=== PATIENT | male | born 1940 | race Caucasian/White ===

== ENCOUNTER 2023-09-27 11:58 | Emergency (ER) | payer MEDICARE, OTHER, SELFPAY ==
[2023-09-27 12:01] VITALS: BP 165/73
[2023-09-27 12:26] LABS: % Basophils 0.7 % (0-2); % Eosinophils 2.1 % (0-6); % Immature Granulocytes 0.3 % (0-0.5); % Lymphocytes 17.9 % (20.5-51.1); % Monocytes 7.3 % (1.7-9.3); % Neutrophils 71.7 % (42.2-75.2); Absolute Basophils 0.1 10^3/uL (0-0.2); Absolute Eosinophils 0.2 10^3/uL (0-0.7); Absolute Lymphocytes 1.3 10^3/uL (1.2-3.4); Absolute Monocytes 0.5 10^3/uL (0.1-0.6); Absolute Neutrophils 5.2 10^3/uL (1.4-6.5); Hematocrit 38.9 % (39.0-52.0); Hemoglobin 13.4 g/dL (13.0-18.0); Mean Corp Hgb Conc. 34.4 g/dL (33.0-37.0); Mean Corpuscular Hgb 31.5 pg (27.0-31.0); Mean Corpuscular Volume 91.3 fL (80.0-94.0); Mean Platelet Volume 10.5 fL (7.4-10.4); Nucleated Red Blood Cells % 0 % (-); Platelet Count 246 10^3/uL (130-400); Red Blood Cell Count 4.26 10^6/uL (4.70-6.10); Red Cell Dist. Width 12.6 % (11.5-14.5); White Blood Cell Count 7.3 10^3/uL (4.8-10.8)
[2023-09-27 12:40] LABS: ALT (SGPT) 21 U/L (0-50); AST (SGOT) 20 U/L (17-59); Albumin 4.2 g/dl (3.5-5.0); Alkaline Phosphatase 50 U/L (38-126); Blood Urea Nitrogen 25 mg/dl (9-20); Calcium 9.4 mg/dl (8.4-10.2); Carbon Dioxide 24 mmol/L (22-30); Chloride 103 mmol/L (98-107); Glucose 185 mg/dl (70-99); Potassium 4.7 mmol/L (3.5-5.1); Sodium 137 mmol/L (135-145); Total Bilirubin 0.6 mg/dl (0.2-1.3); Total Protein 6.8 g/dl (6.3-8.2); eGFR 53.84
[2023-09-27 13:29] VITALS: BMI 29.2
[2023-09-27 14:32] LABS: Urine Albumin Negative (Neg - Trace); Urine Bilirubin Negative (Negative); Urine Character Clear (Clear); Urine Color Yellow; Urine Glucose Negative (Negative); Urine Ketone Negative (Negative); Urine Leukocyte Negative (Negative); Urine Nitrite Negative (Negative); Urine Occult Blood Negative (Negative); Urine Urobilinogen Negative (Neg - 1+)
[2023-09-27] MEDS: NSS 500 IV (15:07)
[2023-09-27 15:31] VITALS: BP 144/74
--- NOTE | 2023-09-27 15:38 | ED.GENMED ---
History of Present Illness
General
Chief Complaint: Dizziness
Source: patient
Exam Limitations: none
Time Seen by Provider: 09/27/23 13:43
Travel History
Have you had any contact with someone who has COVID-19?: No
Do you have any symptoms of coronavirus? Fever > 100 degrees, chills, cough, shortness of breath, sore throat, loss of taste or smell, muscle aches, or headache?: No
History of Present Illness
History of Present Illness:
83-year-old male history of ezs-wqwaqnb-vvocyiqoa diabetes presents complaining of intermittent episodes of dizziness over the past month. He describes a spinning sensation. At times he feels like he zones out. No unilateral numbness or weakness.
No headache chest pain shortness of breath nausea vomiting. No vision change. No fever. He has checked his blood sugars which have been good. No other complaints at this
Past History
Past History
ED Past Medical History: COPD, GERD, HTN, Hypercholesterolemia, NIDDM and Other (Glaucoma, prostatic hypertrophy)
Social History
Tobacco: Non-smoker
Phy Exam
Physical Exam
Physical Exam:
General: Well-appearing male no acute respiratory distress
HEENT: Normocephalic atraumatic pupils equal round reactive to light extract motion intact no nystagmus TMs normal
Heart: Regular rate and rhythm no murmurs
Lungs: Clear to auscultation bilaterally no wheezing
Abdomen: Soft nontender nondistended
Neurologic exam: Alert and oriented no facial asymmetry finger-nose [id number] intact normal gait. No drift on exam no aphasia or dysarthria
Course
Orders/Labs/Results
Orders:
Orders
09/27/23 12:04
Electrocardiogram (*1) Urgent
Reason for Study: Vertigo / Dizzy
EKG- Treatment ONCE
09/27/23 12:11
Complete Blood Count/With Diff Urgent
Comprehensive Metabolic Panel Urgent
09/27/23 14:02
CT Head W/o Iv Contrast Urgent
Comment:
Reason For Exam: dizzy
09/27/23 14:13
0.9% Sodium Chloride 500 ml [Nss] 500 ml IV BOLUS
09/27/23 14:16
Urinalysis Reflex To Culture Urgent
Date Specimen was Collected: 09/27/23
Time Specimen was Collected: 14:10
Abnormal Lab Results
09/27/23
12:11
RBC 4.26 L 10^6/uL
(4.70-6.10)
Hct 38.9 L %
(39.0-52.0)
MCH 31.5 H pg
(27.0-31.0)
MPV 10.5 H fL
(7.4-10.4)
Lymphocytes % 17.9 L %
(20.5-51.1)
BUN 25 H mg/dl
(9-20)
Glucose 185 H mg/dl
(70-99)
09/27/23 12:11
09/27/23 12:11
Vital Signs
Initial and Last Documented VS:
Initial Vital Signs
Temp Pulse Resp BP Pulse Ox
97.6 F 73 18 165/73 99
09/27/23 12:01 09/27/23 12:01 09/27/23 12:01 09/27/23 12:01 09/27/23 12:01
Last Documented Vital Signs
Temp Pulse Resp BP Pulse Ox
97.6 F 56 16 144/74 97
09/27/23 12:01 09/27/23 15:31 09/27/23 15:31 09/27/23 15:31 09/27/23 15:31
MDM/Problems Addressed
Differential Diagnosis Includes:
Dizziness. Question vertigo unlikely be CVA given duration of symptoms. Question electrolyte abnormality or arrhythmia. Will check labs CT
*Critical Care Note
Total Time (30-74mins, 75-104mins- exclusive of procedures): Not Applicable
Update Note
Update Note:
CT shows chronic lacunar infarct. Negative patient asymptomatic. He has ambulated to the bathroom and back. He was hydrated. Labs okay. Discussed lacunar infarct with neurology. No emergent indication for any intervention at this point.
Stable for follow-up with family doctor and/or makeup instructor
ED Attending Note
-
Portions of this chart may have been created with voice recognition software.� Occasional wrong word or��sound alike� substitutions may have occurred due to the inherent limitations of voice recognition software.
Discharge Plan
Departure
Patient Disposition: Home (Routine Discharge)
Date of Disposition: 09/27/23
Time of Disposition: 15:38
Patient with high blood pressure during this ER visit?: No
Discharge Problem:
Dizziness
Instructions: Dizziness
Prescriptions:
No Action
pravastatin 40 MG tablet
40 mg PO QPM
aspirin 81 MG tablet,delayed release (DR/EC)
81 mg PO DAILY
tamsulosin 0.4 MG capsule
0.4 mg PO HS
metformin 1,000 MG tablet
1,000 mg PO BID
omeprazole 20 MG capsule,delayed release(DR/EC)
20 mg PO PRN PRN (Reason: heart burn)
Centrum Silver 1 EACH tablet
1 ea PO DAILY
diltiazem HCl 120 mg Capsule,Extended Release 24 Hr
120 mg PO HS
Referrals:
Shen Cleveland DO [Family Provider] -
Activity Restrictions/Additional Instructions:
Please follow-up with your family doctor and makeup instructor. Return for worsening symptoms otherwise.
Interventions
Interventions:
*Risk Screen - Suicide Last Done: 09/27/23 12:01
*General Assessment Last Done: 09/27/23 12:01
*Neglect/Abuse Screening Last Done: 09/27/23 12:01
*ED COVID-19 Vaccine History Last Done: 09/27/23 12:01
== END 2023-09-27 15:54 | disposition home or self-care (01) ==
LOC: EMR 11:58
PROVIDERS: Emergency Medicine; Physician Assistant; EMERGENCY PHYSICIAN Emergency Medicine; FAMILY PHYSICIAN Family Medicine
DX: R42 Dizziness and giddiness (principal); I63.81 Other cerebral infarction due to occlusion or stenosis of small artery
CPT/HCPCS: 99285; 96360; 70450; 80053; 81003; 85025; 93005

== ENCOUNTER → 2023-11-29 08:28 | Outpatient (REF) | payer MEDICARE, OTHER, SELFPAY ==
[2023-11-29 12:43] LABS: Erythrocyte Sed Rate 11 mm/hour (0-20)
[2023-11-29 12:45] LABS: C-Reactive Protein < 5.00 mg/L (0.0-10.00)
[2023-11-29 13:15] LABS: TSH Reflex To Free T4 3.01 uIU/ml (0.47-4.68)
[2023-11-29 13:51] LABS: Folate 18.1 ng/ml (2.76-20); Vitamin B12 276 pg/ml (239-931)
== END ==
LOC: HWLAB 08:28
PROVIDERS: ATTENDING PHYSICIAN Psychiatry & Neurology Neurology; FAMILY PHYSICIAN Family Medicine
DX: R42 Dizziness and giddiness (principal); R94.6 Abnormal results of thyroid function studies; D52.9 Folate deficiency anemia, unspecified; D51.0 Vitamin B12 deficiency anemia due to intrinsic factor deficiency
CPT/HCPCS: 36415; 82607; 82746; 84155; 84165; 84443; 85652; 86140

== ENCOUNTER 2024-05-22 16:19 | Observation (INO) | payer MEDICARE, OTHER, SELFPAY ==
[2024-05-22 11:40] VITALS: BP 154/66
[2024-05-22 12:12] VITALS: BMI 27.7
[2024-05-22 12:12] LABS: % Basophils 0.5 % (0-2); % Eosinophils 2.1 % (0-6); % Immature Granulocytes 0.5 % (0-0.5); % Monocytes 6.7 % (1.7-9.3); % Neutrophils 66.2 % (42.2-75.2); Absolute Eosinophils 0.1 10^3/uL (0-0.7); Absolute Lymphocytes 1.5 10^3/uL (1.2-3.4); Absolute Monocytes 0.4 10^3/uL (0.1-0.6); Absolute Neutrophils 4.1 10^3/uL (1.4-6.5); Mean Corp Hgb Conc. 35.1 g/dL (33.0-37.0); Mean Corpuscular Hgb 31.3 pg (27.0-31.0); Mean Corpuscular Volume 88.9 fL (80.0-94.0); Mean Platelet Volume 10.3 fL (7.4-10.4); Nucleated Red Blood Cells % 0 % (-); Platelet Count 257 10^3/uL (130-400); Red Blood Cell Count 4.16 10^6/uL (4.70-6.10); Red Cell Dist. Width 12.3 % (11.5-14.5); White Blood Cell Count 6.1 10^3/uL (4.8-10.8)
[2024-05-22 12:23] LABS: ALT (SGPT) 20 U/L (0-50); AST (SGOT) 20 U/L (17-59); Albumin 4.2 g/dl (3.5-5.0); Alkaline Phosphatase 41 U/L (38-126); Blood Urea Nitrogen 28 mg/dl (9-20); Calcium 9.6 mg/dl (8.4-10.2); Carbon Dioxide 25 mmol/L (22-30); Chloride 103 mmol/L (98-107); Estimated Creatinine Clearance 39 ml/min; Glucose 142 mg/dl (70-99); Lipase 160 U/L (23-300); Potassium 4.8 mmol/L (3.5-5.1); Sodium 140 mmol/L (135-145); Total Bilirubin 0.7 mg/dl (0.2-1.3); Total Protein 6.6 g/dl (6.3-8.2); eGFR 45.06
--- NOTE | 2024-05-22 13:18 | ED.GENMED ---
History of Present Illness
General
Chief Complaint: Abdominal Pain
Time Seen by Provider: 05/22/24 12:16
History of Present Illness
History of Present Illness:
84-year-old male with history of hypertension and diabetes presenting to the emergency department with right lower quadrant abdominal pain. Patient reports symptoms started 3 days ago, mid right abdomen. Denies inciting injury or trauma. Denies
nausea or vomiting. Denies diarrhea or constipation. Denies urinary complaints. Denies any intra-abdominal surgeries. Denies fever. He went to go see his primary care doctor today who was concerned for possible acute appendicitis, advised to
come to the hospital for further evaluation. Denies chest pain, difficulty breathing, or additional acute medical complaints
Past History
Past History
ED Past Medical History: COPD, GERD, HTN, Hypercholesterolemia, NIDDM and Other (Glaucoma, prostatic hypertrophy)
Social History
Tobacco: Non-smoker
Phy Exam
Physical Exam
Physical Exam:
General: Well-appearing, no clinical signs of dehydration, nontoxic and in no acute distress
HEENT: protecting airway
Neck: appears supple
CV: Normal heart rate
Resp: No accessory muscle use, no increased work of breathing
Abd: Soft and non-distended, focal tenderness to the mid right side of the abdomen without rebound or guarding. No distention. Reducible umbilical hernia
Extremities: No deformities, no swelling
Neuro: alert, no focal neurologic deficit
: deferred
Rectal: deferred
Psych: Normal affect
Skin: Intact
Course
Orders/Labs/Results
Orders:
Orders
05/22/24 11:52
Complete Blood Count/With Diff Urgent
Comprehensive Metabolic Panel Urgent
Lipase Urgent
05/22/24 12:34
CT Abd/pelvis W Iv Cont Urgent
Comment:
Reason For Exam: RLQ pain
05/22/24 14:59
CefTRIAXone [Rocephin] 1,000 mg IV NOW STA
MetroNIDAZOLE IVPB 500 mg IVPB NOW MetroNIDAZOLE 500 MG/100 ML [Flagyl 500 mg] 100 ml IV NOW
Abnormal Lab Results
05/22/24
11:52
RBC 4.16 L 10^6/uL
(4.70-6.10)
Hct 37.0 L %
(39.0-52.0)
MCH 31.3 H pg
(27.0-31.0)
BUN 28 H mg/dl
(9-20)
Creatinine 1.5 H mg/dL
(0.7-1.3)
Glucose 142 H mg/dl
(70-99)
05/22/24 11:52
05/22/24 11:52
Vital Signs
Initial and Last Documented VS:
Initial Vital Signs
Temp Pulse Resp BP Pulse Ox
97.9 F 62 18 154/66 99
05/22/24 11:40 05/22/24 11:40 05/22/24 11:40 05/22/24 11:40 05/22/24 11:40
Last Documented Vital Signs
Temp Pulse Resp BP Pulse Ox
97.9 F 62 18 154/66 99
05/22/24 11:40 05/22/24 11:40 05/22/24 11:40 05/22/24 11:40 05/22/24 11:40
MDM/Problems Addressed
MDM/Problems Addressed:
84-year-old male with history of hypertension and diabetes presenting to the emergency department for right-sided abdominal pain. Vital signs on arrival are significant for mild hypertension.
On exam patient is well-appearing, no acute distress or discomfort. Patient overall nontoxic. Patient has focal tenderness to the right mid abdomen, along the musculature with overall suspicion for musculoskeletal etiology, pain seems superficial.
No Purdy sign or McBurney point tenderness. Will screen with laboratory analysis and CT imaging for further evaluation to ensure. Patient declining pain medication at this time.
15:00 - Labs are unremarkable, no leukocytosis, however CT concerning for acute appendicitis. Did discuss with surgery. Antibiotics ordered. Plan for admission.
*Critical Care Note
Total Time (30-74mins, 75-104mins- exclusive of procedures): Not Applicable
ED Attending Note
-
Portions of this chart may have been created with voice recognition software.� Occasional wrong word or��sound alike� substitutions may have occurred due to the inherent limitations of voice recognition software.
Discharge Plan
Departure
Prescriptions:
No Action
pravastatin 40 MG tablet
40 mg PO QPM
aspirin 81 MG tablet,delayed release (DR/EC)
81 mg PO DAILY
tamsulosin 0.4 MG capsule
0.4 mg PO HS
metformin 1,000 MG tablet
1,000 mg PO BID
omeprazole 20 MG capsule,delayed release(DR/EC)
20 mg PO PRN PRN (Reason: heart burn)
Centrum Silver 1 EACH tablet
1 ea PO DAILY
diltiazem HCl 120 mg Capsule,Extended Release 24 Hr
120 mg PO HS
Referrals:
Shen Cleveland DO [Family Provider] -
Interventions
Interventions:
*Risk Screen - Suicide Last Done: 05/22/24 11:40
*General Assessment Last Done: 05/22/24 11:40
*Neglect/Abuse Screening Last Done: 05/22/24 11:40
BX-Omzult-Bwpgbjbzmv Assessment Last Done: 05/22/24 12:12
Discharge Date and Time
Print Language: YAKUT
[2024-05-22 15:05] VITALS: BP 181/77
[2024-05-22] MEDS: ROCEPHIN 1000 MG IV (15:11)
[2024-05-22] MEDS: FLAGYL 500 MG 100 IV (15:11)
--- NOTE | 2024-05-22 16:06 | HPS.HSE ---
Family Physician
-
Family Physician: Shen Cleveland
Chief Complaint
-
Right-sided abdominal pain
History of Present Illness
Patient was in his usual baseline state health until Sunday evening around dinnertime. He was out with his friends for breakfast and lunch. Had no symptoms then acutely took note of right-sided abdominal pain around dinnertime. Thought it was
related to eating out throughout the day. Drank warm water and had a bowel movement. His symptoms were somewhat alleviated. Sunday had a mild residual discomfort right lateral abdomen assisted between the ribs on the right hip. Ate regularly
throughout the day yesterday without any nausea, anorexia, worsening abdominal pain.
Today he already had a routine follow-up scheduled with his family physician. Right sided tenderness was noted on examination prompting referral to emergency department.
Patient reports a mild discomfort in the right abdomen at the same location as where it started. Continues without nausea. He is hungry and would like to eat dinner. Last bowel movement yesterday. Denies any fevers chills or sweats. Denies any
malaise lethargy or fatigue. States that if he did not have his appointment with his family physician today his symptoms probably were not even bad enough to reach out to primary care provider for evaluation.
No similar episodes in the past.
He had routine colonoscopy through the age of 73 which were all unremarkable. He only recalls a few benign polyps being present on one of his first colonoscopies but none of the latter ones.
Medical History
Past Medical History
Past Medical History: Reports Other (Glaucoma, COPD, hypertension, type 2 diabetes, hypercholesterolemia)
Past Surgical History: Reports Other (ORIF right tib-fib, cardiac catheterization, cataracts, Mohs)
Social History
Tobacco: Former Smoker (Remote)
Living: With Family
Employment: Retired
Family History
Family History: Not pertinent
Allergies / Home Medications
Allergies reflects when Allergies were last updated in [facility].
Home Medications with original date entered in [facility]
Allergy/Medication List:
Allergies
Allergy/AdvReac Type Severity Reaction Status Date / Time
No Known Allergies Allergy Verified 05/22/24 11:40
�Medication �Instructions �Recorded �Confirmed �Type
aspirin 81 mg tablet,delayed 81 mg PO HS 09/30/15 05/22/24 History
release
kigeowkf-okf-fonlg acid 0.4 1 ea PO DAILY 09/30/15 05/22/24 History
mg-lycopene 300 mcg-lutein 250 mcg
tablet (Centrum Silver)
omeprazole 20 mg capsule,delayed 20 mg PO DAILYPRN PRN heart burn 09/30/15 05/22/24 History
release
pravastatin 40 mg tablet 40 mg PO HS 09/30/15 05/22/24 History
tamsulosin 0.4 mg capsule 0.4 mg PO HS 09/30/15 05/22/24 History
albuterol sulfate 90 mcg/actuation 2 puff inhalation R Q4HPRN PRN sob 05/22/24 05/22/24 History
aerosol inhaler
benazepril 10 mg tablet 10 mg PO BID 05/22/24 05/22/24 History
betaxolol 0.25 % eye 1 drp BOTH EYES BID 05/22/24 05/22/24 History
drops,suspension (Betoptic S)
budesonide-formoterol HFA 160 2 puff inhalation R BID 05/22/24 05/22/24 History
mcg-4.5 mcg/actuation aerosol
inhaler (Symbicort)
ibuprofen 200 mg tablet (Advil) 600 mg PO Q6HPRN PRN mild pain 05/22/24 05/22/24 History
metformin 500 mg tablet 500 mg PO TIDWMEAL 05/22/24 05/22/24 History
Review of Systems
-
History Source: Patient and Family
A 12 point ROS was completed and negative except as noted: Yes
Physical Exam
Vital Signs
Vital Signs
Temp Pulse Resp BP Pulse Ox
97.9 F 55 18 181/77 99
05/22/24 11:40 05/22/24 15:05 05/22/24 15:05 05/22/24 15:05 05/22/24 15:05
Physical Exam
General: Well Developed, Well Nourished, No Apparent Distress, Comfortable, Conversant and Other ( lying in hospital bed, not acutely ill-appearing, pleasant and participatory for history taking)
HEENT: NormoCephalic, Anicteric, Moist mucous membranes and Atraumatic
Respiratory: Non Labored Respirations
Cardiac: Regular Rhythm
GI: Soft, Non Distended, Tender ( mild tenderness palpation right lateral abdominal wall assisted between right ASIS and costal margin. No rebound, no rigidity, no guarding, essentially nontender otherwise.) and Other (Reducible umbilical hernia)
Skin: Warm
Neuro: AO x 3
Psych: Calm
Laboratory Results
-
05/22/24 11:52
05/22/24 11:52
Laboratory Results
Total Bilirubin 0.7 mg/dl (0.2-1.3) 05/22/24 11:52
AST 20 U/L (17-59) 05/22/24 11:52
ALT 20 U/L (0-50) 05/22/24 11:52
Alkaline Phosphatase 41 U/L (38-126) 05/22/24 11:52
Lipase 160 U/L (23-300) 05/22/24 11:52
Data Reviewed
-
CT Scan: Image Personally Visualized and interpreted, Report Reviewed by me, Discussed with Patient and Discussed with Family
Impression/Plan
-
IMPRESSION: 84-year-old male with probable uncomplicated acute appendicitis.
Personally reviewing and interpreting CT imaging appendix is visualized in the right lateral hemiabdomen in a retrocecal location projecting cranially. Prominent measuring 9 to 10 mm in diameter. No significant surrounding inflammatory changes into
the adjacent fat. Base of the cecum unremarkable as well. There does not appear to be any radiopaque obstructing fecalith. Terminal ileum unremarkable. No additional surrounding intra-abdominal pathology.
Advised patient of examination and CT imaging suggestive of a mild bout of acute uncomplicated appendicitis. Given clinical stability, normal white blood cell count without shift, very minimal discomfort and mild tenderness we discussed options for
either medical management or appendectomy. While I offered laparoscopic appendectomy advised that I would lean towards medical management as he does not appear to be acutely ill and there is no evidence of fecalith or obstructing appendicitis
process.
After discussions patient in agreement to proceed with plans for nonoperative management.
PLAN: Admit for IV antibiotics - will cover with Unasyn 3 g IV q 6
Okay for regular diet as there are no signs of associated ileus, symptoms of nausea or abdominal distention
Repeat CBC in a.m.
Follow fever curve
If continued clinical improvement would anticipate discharge home on 7 to 10-day course of Augmentin as soon as tomorrow
If worsening symptoms of appendicitis further discussions regarding reconsidering pursuing appendectomy
[2024-05-22 17:42] LABS: Glucose - Point of Care 186 mg/dl (70-99)
[2024-05-22 17:43] VITALS: BP 158/80
--- NOTE | 2024-05-22 18:03 | PTCARENOTE ---
Received patient from ED via stretcher. AAOx3, ambulated to bed without assistance. Assessed and oriented to room. Call acevedo in close reach.
[2024-05-22] MEDS: GLUCOPHAGE 500 MG PO (18:12)
[2024-05-22] MEDS: NOVOLOG FLEXPEN-LOW RESISTANCE 1 UNITS SC (18:12)
[2024-05-22] MEDS: ZESTRIL 10 MG PO (20:03)
[2024-05-22] MEDS: BETAXOLOL 0.25% 1 DROP BOTH EYES (20:04)
[2024-05-22] MEDS: UNASYN IV (20:04)
[2024-05-22] MEDS: FLOMAX 0.4 MG PO (20:06)
[2024-05-22] MEDS: ASPIR LOW (ENTERIC COATED) 81 MG PO (20:06)
[2024-05-22] MEDS: PRAVACHOL 40 MG PO (20:06)
[2024-05-22] MEDS: SYMBICORT 160/4.5 MCG INHALER 2 PUFF INH (20:37)
[2024-05-22 23:36] VITALS: BP 150/80
[2024-05-23] MEDS: UNASYN IV ×2 (01:31→08:16)
[2024-05-23 06:00] VITALS: BMI 27.1
[2024-05-23 07:05] LABS: Glucose - Point of Care 134 mg/dl (70-99)
[2024-05-23 07:10] VITALS: BP 151/60
[2024-05-23] MEDS: NOVOLOG FLEXPEN-LOW RESISTANCE SC (07:18)
[2024-05-23 07:37] LABS: % Basophils 0.6 % (0-2); % Eosinophils 3.6 % (0-6); % Immature Granulocytes 0.3 % (0-0.5); % Lymphocytes 24.4 % (20.5-51.1); % Neutrophils 63.1 % (42.2-75.2); Absolute Eosinophils 0.3 10^3/uL (0-0.7); Absolute Lymphocytes 1.7 10^3/uL (1.2-3.4); Absolute Monocytes 0.6 10^3/uL (0.1-0.6); Absolute Neutrophils 4.4 10^3/uL (1.4-6.5); Hematocrit 36.9 % (39.0-52.0); Hemoglobin 12.8 g/dL (13.0-18.0); Mean Corp Hgb Conc. 34.7 g/dL (33.0-37.0); Mean Corpuscular Hgb 31.6 pg (27.0-31.0); Mean Corpuscular Volume 91.1 fL (80.0-94.0); Mean Platelet Volume 10.2 fL (7.4-10.4); Nucleated Red Blood Cells % 0 % (-); Platelet Count 246 10^3/uL (130-400); Red Blood Cell Count 4.05 10^6/uL (4.70-6.10); Red Cell Dist. Width 12.2 % (11.5-14.5)
[2024-05-23] MEDS: SYMBICORT 160/4.5 MCG INHALER 2 PUFF INH (07:45)
[2024-05-23 07:55] VITALS: BP 151/60
[2024-05-23] MEDS: BETAXOLOL 0.25% 1 DROP BOTH EYES (08:15)
[2024-05-23] MEDS: PROTONIX 40 MG PO (08:15)
[2024-05-23] MEDS: ZESTRIL 10 MG PO (08:15)
[2024-05-23] MEDS: GLUCOPHAGE 500 MG PO (09:03)
--- NOTE | 2024-05-23 09:56 | W.PN.GS2 ---
Today's Communication / Plan
-
Dispo planning
Assessment / Plan
-
IMPRESSION: 84-year-old male with probable uncomplicated acute appendicitis.
No leukocytosis
AFVSS
Improving on IV ABX, will continue nonoperative management
PLAN:
Resume diet
IV abx until d/c then transition to 7 day course of Augmentin
Dispo planning
Reviewed with patient concerning signs and symptoms which would necessitate return to the ED for evaluation including fevers, chills, worsening abdominal pain
Subjective Data
-
Date of Service: May 23, 2024
Patient seen and examined at bedside with Dr. Simmons. Denies n/v. Denies abdominal pain but does have some minimal discomfort with palpation to the RLQ and flank.
Objective Data
-
Intake and Output
05/22/24 05/23/24 05/24/24
06:59 06:59 06:59
Intake Total 477 / 477
Balance 477 / 477
Intake:
Oral fluids 477 / 477
Vital Signs
Temp Pulse Resp BP Pulse Ox
97.5 F 65 18 151/60 97
05/23/24 07:10 05/23/24 07:46 05/23/24 07:46 05/23/24 07:10 05/23/24 08:10
Lab Results
05/23/24 07:01
05/22/24 11:52
Calcium 9.6 mg/dl (8.4-10.2) 05/22/24 11:52
Total Bilirubin 0.7 mg/dl (0.2-1.3) 05/22/24 11:52
AST 20 U/L (17-59) 05/22/24 11:52
ALT 20 U/L (0-50) 05/22/24 11:52
Alkaline Phosphatase 41 U/L (38-126) 05/22/24 11:52
Total Protein 6.6 g/dl (6.3-8.2) 05/22/24 11:52
Albumin 4.2 g/dl (3.5-5.0) 05/22/24 11:52
Physical Exam
-
NAD
ABD soft, nd, area cleaner, mild tenderness to the lateral RLQ
--- NOTE | 2024-05-23 10:01 | W.DCSUMMARY ---
Discharge Summary
Discharge Data
Date of Admission: 05/22/24
Date of Discharge: 05/23/24
-
Pending Results: No
Hospital Course
Mr Figueroa is an 84 yo male who presented through the ED with several days of right sided abdominal discomfort with tenderness on exam. On CT imaging, the appendix was prominent but without surrounding inflammatory changes or appendicolith. He had
no fevers or leukocytosis. Operative vs medical management for acute but uncomplicated appendicitis was discussed with patient and the decision was made to proceed with nonoperative management with antibiotics. He had improvement in symptoms on
antibiotics and was transitioned to oral agent upon discharge for an additional week of antibiotics. Follow up planned after completion of antibiotics for repeat evaluation.
Discharge Plan
-
Patient Disposition: Home (Routine Discharge)
Discharge Diagnosis/Procedures: right lower abdominal pain, uncomplicated appendicitis
Condition: Good
Diet: Diabetic, Carb Controlled
Activity: No restrictions
Driving Restrictions: As prior to admission
Bathing Restrictions: OK to Shower
Activity Restrictions/Additional Instructions:
Call your surgeon or present to the emergency department if you develop abdominal symptoms such as nausea, vomiting or diarrhea, fever >100.5 or worsening abdominal pain
Referrals:
Shen Cleveland DO [Family Provider] -
Dez Alarcon MD [Active] - in two to three weeks
Prescriptions:
New
amoxicillin-pot clavulanate 875-125 mg tablet
1 tab PO Q12 Qty: 14 0RF
Continued
pravastatin 40 MG tablet
40 mg PO HS
aspirin 81 MG tablet,delayed release (DR/EC)
81 mg PO HS
tamsulosin 0.4 MG capsule
0.4 mg PO HS
omeprazole 20 MG capsule,delayed release(DR/EC)
20 mg PO DAILYPRN PRN (Reason: heart burn)
Centrum Silver 1 EACH tablet
1 ea PO DAILY
metformin 500 mg Tablet
500 mg PO TIDWMEAL
Betoptic S 0.25 % Drops,Suspension
1 drp BOTH EYES BID
Patient Comments:
05/22/24: Patient willing to bring own medication.
ibuprofen [Advil] 200 mg Tablet
600 mg PO Q6HPRN PRN (Reason: mild pain)
albuterol sulfate 90 mcg/actuation Hfa Aerosol Inhaler
2 puff INHALATION R Q4HPRN PRN (Reason: sob)
benazepril 10 mg Tablet
10 mg PO BID
budesonide-formoterol [Symbicort] 160-4.5 mcg/actuation Hfa Aerosol Inhaler
2 puff INHALATION R BID
Discharge Orders:
Discharge Patient (As Directed); Ordered 05/23/24
Ordered By: Aretha Ayoub
Discharge Date and Time
Print Language: SAO TOMEAN
--- NOTE | 2024-05-23 11:13 | CM ---
Alert awake oriented pt who lives with his Taisha in a 2 story home with 1 step to enter . Bed /Bathroom on first floor.Pt is independent in driving and all ADLs. [facility] letter explained and reviewed. Pt signed AKERS copy on chart. Offered VN he
declined need. will drive him home.
NO VN/SNF hx,
No adaptive devices.
Pharm [facility] [place]
PCP Dr Shen Cleveland
PLAN Home no needs
== END 2024-05-23 11:18 | disposition home or self-care (01) ==
LOC: 4 EAST ACU 16:19
PROVIDERS: Emergency Medicine; ADMITTING PHYSICIAN Surgery; EMERGENCY PHYSICIAN Student in an Organized Health Care Education/Training Program; FAMILY PHYSICIAN Family Medicine
DX: R10.31 Right lower quadrant pain (principal); K36 Other appendicitis; I10 Essential (primary) hypertension; E11.36 Type 2 diabetes mellitus with diabetic cataract; J44.9 Chronic obstructive pulmonary disease, unspecified; H40.9 Unspecified glaucoma; K80.20 Calculus of gallbladder without cholecystitis without obstruction; N40.0 Benign prostatic hyperplasia without lower urinary tract symptoms; E78.00 Pure hypercholesterolemia, unspecified; K21.9 Gastro-esophageal reflux disease without esophagitis; K42.9 Umbilical hernia without obstruction or gangrene; Z79.82 Long term (current) use of aspirin; Z79.84 Long term (current) use of oral hypoglycemic drugs; Z87.891 Personal history of nicotine dependence
CPT/HCPCS: 74177; 80053; 82962; 83690; 85025; 94640; 96365; 96375; 99285; Q9967

== ENCOUNTER → 2024-08-14 09:43 | Outpatient (REF) | payer MEDICARE, OTHER, SELFPAY ==
[2024-08-14 12:47] LABS: % Basophils 0.9 % (0-2); % Eosinophils 3.5 % (0-6); % Immature Granulocytes 0.3 % (0-0.5); % Lymphocytes 19.9 % (20.5-51.1); % Monocytes 7.1 % (1.7-9.3); % Neutrophils 68.3 % (42.2-75.2); Absolute Basophils 0.1 10^3/uL (0-0.2); Absolute Eosinophils 0.2 10^3/uL (0-0.7); Absolute Lymphocytes 1.4 10^3/uL (1.2-3.4); Absolute Monocytes 0.5 10^3/uL (0.1-0.6); Absolute Neutrophils 4.6 10^3/uL (1.4-6.5); Hematocrit 39.8 % (39.0-52.0); Hemoglobin 13.8 g/dL (13.0-18.0); Mean Corp Hgb Conc. 34.7 g/dL (33.0-37.0); Mean Corpuscular Hgb 31.7 pg (27.0-31.0); Mean Corpuscular Volume 91.3 fL (80.0-94.0); Mean Platelet Volume 10.8 fL (7.4-10.4); Nucleated Red Blood Cells % 0 % (-); Platelet Count 242 10^3/uL (130-400); Red Blood Cell Count 4.36 10^6/uL (4.70-6.10); Red Cell Dist. Width 12.3 % (11.5-14.5); White Blood Cell Count 6.8 10^3/uL (4.8-10.8)
[2024-08-14 12:52] LABS: Urine Albumin Negative (Neg - Trace); Urine Bilirubin Negative (Negative); Urine Character Clear (Clear); Urine Color Yellow; Urine Glucose Negative (Negative); Urine Ketone Negative (Negative); Urine Leukocyte Negative (Negative); Urine Nitrite Negative (Negative); Urine Occult Blood Negative (Negative); Urine Specific Gravity 1.015 (<1.030); Urine Urobilinogen Negative (Neg - 1+)
[2024-08-14 13:14] LABS: ALT (SGPT) 21 U/L (0-50); AST (SGOT) 19 U/L (17-59); Albumin 4.5 g/dl (3.5-5.0); Alkaline Phosphatase 53 U/L (38-126); Blood Urea Nitrogen 32 mg/dl (9-20); Calcium 9.8 mg/dl (8.4-10.2); Carbon Dioxide 25 mmol/L (22-30); Chloride 101 mmol/L (98-107); Glucose 163 mg/dl (70-99); HDL Cholesterol 41 mg/dl; LDL Cholesterol, Calculated 76 mg/dl; Sodium 137 mmol/L (135-145); Total Bilirubin 0.7 mg/dl (0.2-1.3); Total Cholesterol 152 mg/dl (50-199); Total Protein 6.7 g/dl (6.3-8.2); Triglyceride 179 mg/dl (10-149); Very Low Density Lipoprotein 35 mg/dl (0-30); eGFR 48.95
[2024-08-14 14:24] LABS: PSA, Total - Screen 4.76 ng/ml (0.0-4.0); TSH 2.08 uIU/ml (0.47-4.68)
== END ==
LOC: HWLAB 09:43
PROVIDERS: ATTENDING PHYSICIAN Family Medicine
DX: I10 Essential (primary) hypertension (principal); E11.9 Type 2 diabetes mellitus without complications; E78.5 Hyperlipidemia, unspecified; Z12.5 Encounter for screening for malignant neoplasm of prostate
CPT/HCPCS: 36415; 80053; 80061; 81003; 83036; 84443; 85025; G0103

== ENCOUNTER → 2024-11-10 08:48 | Outpatient (REF) | payer MEDICARE, OTHER, SELFPAY ==
[2024-11-10 12:03] LABS: Blood Urea Nitrogen 41 mg/dl (9-20); Calcium 9.4 mg/dl (8.4-10.2); Carbon Dioxide 22 mmol/L (22-30); Chloride 104 mmol/L (98-107); Glucose 161 mg/dl (70-99); Potassium 4.5 mmol/L (3.5-5.1); Sodium 140 mmol/L (135-145); eGFR 38.78
== END ==
LOC: HWLAB 08:48
PROVIDERS: ATTENDING PHYSICIAN Internal Medicine Interventional Cardiology; FAMILY PHYSICIAN Family Medicine
DX: I10 Essential (primary) hypertension (principal)
CPT/HCPCS: 36415; 80048

== ENCOUNTER → 2025-01-08 11:46 | Outpatient (REF) | payer MEDICARE, OTHER, SELFPAY ==
[2025-01-08 16:31] LABS: Blood Urea Nitrogen 27 mg/dl (9-20); Calcium 9.4 mg/dl (8.4-10.2); Carbon Dioxide 23 mmol/L (22-30); Chloride 107 mmol/L (98-107); Glucose 200 mg/dl (70-99); Potassium 4.6 mmol/L (3.5-5.1); Sodium 139 mmol/L (135-145); eGFR 45.06
== END ==
LOC: HWLAB 11:46
PROVIDERS: ATTENDING PHYSICIAN Internal Medicine Interventional Cardiology
DX: I10 Essential (primary) hypertension (principal)
CPT/HCPCS: 36415; 80048